=== PATIENT | female | born 1965 | race Caucasian/White ===

== ENCOUNTER 2025-02-02 13:35 | Observation (INO) ==
[2025-02-02] MEDS ORDERED: PHENERGAN INJ 25 MG IM PRN (13:39)
[2025-02-02] MEDS ORDERED: ZOFRAN INJ 4 MG VIAL IVP PRN (13:39)
[2025-02-02 14:24] LABS: MEAN PLATELET VOLUME 7.5 fL (7.4-11.0); RED CELL DISTRIBUTION WIDTH 13.2 % (11.6-16.5)
[2025-02-02 14:36] LABS: COR NA(FOR HYPERGLY) 139 mmol/L (136-145); CREATININE 0.86 mg/dL (0.55-1.02); eGFR NON BLACK RACES > 60 (>60)
[2025-02-02] MEDS ORDERED: CONSULT PHARMACY - POTASSIUM & MAGNESIUM XX SCH ×2 (15:00→16:00)
[2025-02-02] MEDS: NS 1,000 ML IV 1,000 ML IV SCH (15:20)
[2025-02-02 15:38] LABS: BLOOD/HEMOGLOBIN,URINE 1+ (NEGATIVE); LEUKOCYTE ESTERASE ,URINE NEGATIVE (NEGATIVE); NITRITES,URINE NEGATIVE (NEGATIVE)
[2025-02-02 16:21] LABS: APPEARANCE,URINE HAZY (CLEAR); SQUAMOUS EPITHELIAL CELL,UR MODERATE /HPF (NEGATIVE)
[2025-02-02 17:00] VITALS: BMI 29.9
[2025-02-02] MEDS: NS + KCL 20 MEQ/L 1,000 ML IV SCH (17:00)
[2025-02-02] MEDS: ROCEPHIN VIAL 1 GRAM 1 G in NS 100 ML IV 100 ML IV SCH (19:27)
[2025-02-02] MEDS: ASPIRIN EC 81 MG PO SCH (20:52)
[2025-02-02] MEDS: LIPITOR TAB 20 MG PO SCH ×2 (20:53→21:08)
[2025-02-02] MEDS: PROTONIX INJ 40 MG VIAL IVP SCH (20:57)
[2025-02-02] MEDS: ZESTRIL TAB 20 MG PO SCH (21:00)
[2025-02-03 04:17] VITALS: O2SAT 96
[2025-02-03 06:22] LABS: MEAN PLATELET VOLUME 8.0 fL (7.4-11.0); RED CELL DISTRIBUTION WIDTH 13.0 % (11.6-16.5)
[2025-02-03 06:33] LABS: COR NA(FOR HYPERGLY) 143 mmol/L (136-145); CREATININE 0.72 mg/dL (0.55-1.02); eGFR NON BLACK RACES > 60 (>60)
[2025-02-03] MEDS ORDERED: CONSULT PHARMACY - POTASSIUM & MAGNESIUM XX SCH (07:00)
--- NOTE | 2025-02-03 07:41 | RAD ---
EXAM: Acute abdominal series 3 films HISTORY: Gastroenteritis COMPARISON: N one FINDINGS: Heart is enlarged. No congestive heart failure is noted. [place] are normal. Lungs are mildly hypoinflated but clear. No pleural effusion or pneumothorax identified. Abdominal gas pattern is nonspecific and nonobstructive. No abnormal masses or abnormal calcifications are identified. No pneumoperitoneum is identified. Regional skeleton is osteopenic but intact. IMPRESSION: Mild cardiomegaly without congestive heart failure Lungs clear Unremarkable abdomen THIS IS AN ELECTRONICALLY VERIFIED FINAL REPORT 02/03/2025 7:37 AM - Electronically signed by Andres Jamil MD
--- NOTE | 2025-02-03 08:30 | DR.H&P ---
H&P History & Physical for Day of: H&P Date: 02/02/25 Chief Complaint Chief Complaint: N/V/D, DEHYDRATION, WEAKNESS History of Present Illness History of Present Illness: PT IS 59 WF, DIRECT ADMIT FROM DR RODRIGUEZ OFFICE WITH ER FOLLOW UP WITH N/V/D, GASTROENTERITIS. PT HAD SHINGLES ~2 WEEKS AGO AND HAS BEEN WEAK SINCE WITH CO ONSET OF GI SYMPTOMS 2 DAYS [employer]. PT WAS EVALUATED IN ER AND DC HOME AND PT'S SYMPTOMS CONTINUED. PT HAS PMH OF HTN, OA, GERD AND L SPINE DDD. Past Medical History Past Medical History: Dyslipidemia and Hypertension Past Surgical History Surgical History: Other Family History Family Medical History: Diabetes Mellitus and Coronary Artery Disease Social History Does patient currently use any type of tobacco product: No Type of Tobacco Use: Cigarettes Alcohol Use: None Drug Use: None Medications Home Medications: Home Medications Medication Instructions Recorded Confirmed Type atorvastatin 10 mg tablet 10 mg PO QHS 03/28/24 History lisinopril 20 mg tablet 20 mg PO BID 08/02/24 History metoprolol succinate 50 mg 50 mg PO QPM 08/02/2402/02 History tablet,extended release 24 hr nifedipine 30 mg tablet,extended 30 mg PO QDAY 5 02/02/25 History release gabapentin 100 mg capsule 100 mg PO DAILY 02/01/25 History Allergies Allergies Allergy/AdvReac Type Severity Reaction Status Date / Time codeine Allergy Unknown Vomiting Verified 02/01/25 16:03 morphine Allergy Unknown Vomiting Verified 02/01/25 16:03 Sulfa (Sulfonamide Allergy Unknown Vomiting Verified 02/01/25 16:03 Antibiotics) Labs 02/03/25 05:47 02/03/25 05:47 Labs: Laboratory WBC 8.5 X10^3/uL (3.6-10.0) 02/03/25 05:47 RBC 4.71 X10^6/uL (3.5-5.4) 02/03/25 05:47 Hgb 14.6 g/dL (12.0-16.0) 02/03/25 05:47 Hct 42.5 % (36.0-47.0) 02/03/25 05:47 MCV 90.2 fL (80.0-100.0) 02/03/25 05:47 MCH 30.9 pg (27.0-34.0) 02/03/25 05:47 MCHC 34.3 g/dL (33.0-35.0) 02/03/25 05:47 RDW 13.0 % (11.6-16.5) 02/03/25 05:47 Plt Count 285 X10^3/uL (150.0-450.0) 02/03/25 05:47 MPV 8.0 fL (7.4-11.0) 02/03/25 05:47 Neut % (Auto) 52.9 % (42.0-75.0) 02/03/25 05:47 Lymph % (Auto) 36.5 % (21.0-51.0) 02/03/25 05:47 [place] % (Auto) 9.5 % (0.0-13.0) 02/03/25 05:47 Eos % (Auto) 0.8 % (0.9-2.9) L 02/03/25 05:47 Baso % (Auto) 0.3 % (0.2-1.0) 02/03/25 05:47 Neut # (Auto) 4.5 x10^3/uL (2.2-4.8) 02/03/25 05:47 Lymph # (Auto) 3.1 X10^3/uL (1.3-2.9) H 02/03/25 05:47 [place] # (Auto) 0.8 x10^3/uL (0.3-0.8) 02/03/25 05:47 Eos # (Auto) 0.1 x10^3/uL (0.0-0.2) 02/03/25 05:47 Baso # (Auto) 0.0 X10^3/uL (0.0-0.1) 02/03/25 05:47 Absolute Nucleated RBC 0.1 /100WBC 02/03/25 05:47 Sodium 143 mmol/L (136-145) 02/03/25 05:47 Corrected Sodium 143 mmol/L (136-145) 02/03/25 05:47 Potassium 3.3 mmol/L (3.5-5.1) L 02/03/25 05:47 Chloride 105 mmol/L (98-107) 02/03/25 05:47 Carbon Dioxide 30.6 mmol/L (21-32) 02/03/25 05:47 BUN 8 mg/dL (7-18) 02/03/25 05:47 Creatinine 0.72 mg/dL (0.55-1.02) 02/03/25 05:47 Est GFR (MDRD) Af Amer > 60 (>60) 02/03/25 05:47 Est GFR (MDRD) Non-Af > 60 (>60) 02/03/25 05:47 Glucose 111 mg/dL (65-99) H 02/03/25 05:47 Calcium 8.8 mg/dL (8.5-10.1) 02/03/25 05:47 Corrected Calcium TNP 02/03/25 05:47 Magnesium 2.0 mg/dL (2.0-2.9) 02/03/25 05:47 Total Bilirubin 0.40 mg/dL (0.2-1.0) 02/03/25 05:47 AST 16 Units/L (15-37) 02/03/25 05:47 ALT 21 Units/L (12-78) 02/03/25 05:47 Alkaline Phosphatase 107 Units/L (46-116) 02/03/25 05:47 Total Protein 7.9 g/dL (6.4-8.2) 02/03/25 05:47 Albumin 3.8 g/dL (3.4-5.0) 02/03/25 05:47 Globulin 4.1 g/dL (2.5-4.5) 02/03/25 05:47 Albumin/Globulin Ratio 0.9 Ratio (1.1-2.1) L 02/03/25 05:47 Amylase 24 Units/L (25-115) L 02/02/25 14:15 Lipase 45 Units/L (16-77) 02/02/25 14:15 Specimen Type Clean catch urine 02/02/25 15:25 Urine Color Straw (YELLOW) 02/02/25 15:25 Urine Appearance Hazy (CLEAR) 02/02/25 15:25 Urine pH 6.0 (5.0 - 8.0) 02/02/25 15:25 Ur Specific [place] 1.015 (1.000-1.030) 02/02/25 15:25 Urine Protein Negative (NEGATIVE) 02/02/25 15:25 Urine Glucose (UA) Negative (NEGATIVE) 02/02/25 15:25 Urine Ketones Negative (NEGATIVE) 02/02/25 15:25 Urine Blood 1+ (NEGATIVE) 02/02/25 15:25 Urine Nitrite Negative (NEGATIVE) 02/02/25 15:25 Urine Bilirubin Negative (NEGATIVE) 02/02/25 15:25 Urine Urobilinogen Normal (NORMAL) 02/02/25 15:25 Ur Leukocyte Esterase Negative (NEGATIVE) 02/02/25 15:25 Urine RBC 3-5 /HPF (0-3) A 02/02/25 15:25 Urine WBC 10-20 /HPF (0-5) A 02/02/25 15:25 Ur Squamous Epith Cells Moderate /HPF (NEGATIVE) 02/02/25 15:25 Urine Bacteria 2+ /HPF (NEGATIVE) 02/02/25 15:25 Ur Culture Indicated? Yes/culture set up 02/02/25 15:25 Review of Systems Constitutional: Weakness Eyes: No Symptoms Reported ENT: No Symptoms Reported Respiratory: No Symptoms Reported Cardiovascular: No Symptoms Reported Gastrointestinal: Nausea, Vomiting, Abdominal Pain and Diarrhea Genitourinary: Frequency Musculoskeletal: Back Pain Skin: No Symptoms Reported Neurological: Weakness Physical Exam Vital Signs: Vital Signs Temperature 97.7 F Pulse Rate [Bilateral Radial] 71 Respiratory Rate 21 Blood Pressure [Left Arm] 156/76 O2 Sat by Pulse Oximetry 96 Oriented: Normal Eyes: Normal Ear: Normal Nose: Normal Throat: Dry Respiratory: RLL Diminished and LLL Diminished Cardiovascular: Normal : Normal Auscultation: Bowel Sounds: Increased Palpation: Normal Tenderness: Diffuse Skin: Decreased [place] Musculoskeletal: Back:Lumbar Psychiatric: Anxiety Mood Description: Anxious Affect: Normal Speech Pattern: Clear and Appropriate Assessment/Plan (1) Gastroenteritis: Status: Acute Plan: ADMIT, IV HYDRATION BP CONTROL, PPI THERAPY ANTIEMETIC THERAPY (2) Dehydration: Status: Acute (3) Hypertension: Status: Acute (4) Lumbar back pain with radiculopathy affecting right lower extremity: Status: Acute
[2025-02-03 09:11] VITALS: BP 175/92; PULSE 55; RESP 20; TEMP 97.5
[2025-02-03] MEDS ORDERED: TOPROL XL PO SCH (21:00)
== END 2025-02-03 12:00 | disposition home or self-care (01) ==
LOC: MED/SURG
PROVIDERS: ADMIT Internal Medicine; ATTEND Internal Medicine
DX: Z86.19 Personal history of other infectious and parasitic diseases; E86.0 Dehydration; E87.6 Hypokalemia; R53.1 Weakness; G62.9 Polyneuropathy, unspecified; M51.16 Intervertebral disc disorders with radiculopathy, lumbar region; R11.2 Nausea with vomiting, unspecified; R19.7 Diarrhea, unspecified; M19.90 Unspecified osteoarthritis, unspecified site; K21.9 Gastro-esophageal reflux disease without esophagitis; R10.84 Generalized abdominal pain; I10 Essential (primary) hypertension; K52.89 Other specified noninfective gastroenteritis and colitis; R73.09 Other abnormal glucose; B96.29 Other Escherichia coli [E. coli] as the cause of diseases classified elsewhere